=== PATIENT | female | born 1975 | race Two or more races ===

== ENCOUNTER 2018-07-08 03:22 | Inpatient (IN) | payer BC, MEDICAID ==
[~2018-07-08] VITALS: Ht 157.5 cm; Wt 53.5 kg
--- NOTE | 2018-07-08 07:15 | NUR ---
PT ADMITTED TO ROOM 311-2, DIRECT ADM. FROM [facility]. PT A/O X4 DOMINICAN SPIKING ONLY. ADM. DIAGNOSIS PYELONEPHRITIS. GAIT IS STEADY. NO PAIN OR N/V REPORTED. PT ON ROOM AIR TOLERATING WELL. IV ASSESS TO LAC #20 FLASHING WELL, NO REDNESS NOTED. PT REPORTED THAT SHE TAKES ONLY METFORMIN AT HOME. PT'S SKIN INTACT.BELONGINGS CHECKED , LIST SIGHED AND PLACED IN THE CHART. WILL F/U WITH ADM. ORDERS.
[2018-07-08 08:00] VITALS: BP 92/64
[2018-07-08] MEDS ORDERED: MAG HYDROX/AL HYDROX/SIMETH 30 ML UDC PO PRN (09:00)
[2018-07-08] MEDS ORDERED: ONDANSETRON HCL/PF 4 MG/2 ML VIAL IVP PRN (09:00)
[2018-07-08] MEDS ORDERED: HYDROCODONE/APAP 5/325MG 1 EACH TABLET PO PRN (09:00)
[2018-07-08] MEDS ORDERED: DEXTROSE 50%-WATER 50 ML DISP.SYRIN IV PRN (09:00)
[2018-07-08] MEDS ORDERED: MAGNESIUM HYDROXIDE 30 ML UDC PO PRN (09:00)
[2018-07-08] MEDS ORDERED: Z GUARD REMEDY 2 OZ OINT TP PRN (09:00)
--- NOTE | 2018-07-08 09:00 | NUR ---
URINE SAMPLE OBTAINED AND SENT TO LAB
[2018-07-08] MEDS ORDERED: METF-442 PO (09:12)
[2018-07-08] MEDS: PANTOPRAZOLE 40 MG VIAL IV SCH (09:19)
[2018-07-08] MEDS: IV NS 0.9% 1,000 ML IV PRN ×2 (09:28→22:20)
[2018-07-08 11:08] LABS: BASOPHILS % (AUTO) 0.3 % (0.0-2.0); HEMATOCRIT 33 % (33-45); HEMOGLOBIN 11.1 g/dL (11.5-14.8); LYMPHOCYTES # (AUTO) 1.6 /CMM (0.8-4.8); LYMPHOCYTES % (AUTO) 17.3 % (20.0-44.0); MEAN CORPUSCULAR HGB CONC 33 g/dl (31.0-36.0); MEAN CORPUSCULAR VOLUME 92 fL (82-100); MONOCYTES # (AUTO) 0.6 /CMM (0.1-1.30); MONOCYTES % (AUTO) 6.3 % (2.0-12.0); NEUTROPHILS # (AUTO) 6.9 /CMM (1.8-8.9); NEUTROPHILS % (AUTO) 75.1 % (43.0-81.0); PLATELET COUNT (AUTO) 226 /CMM (150-450); RED BLOOD CELL COUNT(AUTO) 3.64 MIL/uL (4.0-5.2); WHITE BLOOD COUNT (AUTO) 9.2 K/uL (4.3-11.0)
[2018-07-08 11:14] LABS: CALCIUM, SERUM 7.8 mg/dL (8.5-10.1); CREATININE 0.6 mg/dL (0.6-1.3); POTASSIUM 3.7 mmol/L (3.5-5.1)
[2018-07-08 11:28] LABS: ALBUMIN 2.8 g/dL (3.4-5.0); BILIRUBIN,TOTAL 0.3 mg/dL (0.2-1.0); MAGNESIUM 1.5 mg/dL (1.8-2.4); PHOSPHORUS 2.9 mg/dL (2.5-4.9)
[2018-07-08] MEDS: BLOOD SUGAR DIAGNOSTIC 1 EACH STRIP IN SCH ×3 (12:00→22:00)
[2018-07-08 12:13] LABS: APPEARANCE,URINE CLEAR (CLEAR); BILIRUBIN,URINE NEGATIVE (NEGATIVE); BLOOD, URINE 2+ Ery/uL (NEGATIVE); COLOR,URINE YELLOW (YELLOW); KETONES,URINE 1+ (NEGATIVE); LEUKOCYTE ESTERASE ,URINE 1+ (NEGATIVE); NITRITE, URINE NEGATIVE (NEGATIVE); PROTEIN,URINE TRACE mg/dl (NEGATIVE); UGLUCOSE 2+ mg/dL (NEGATIVE); UROBILINOGEN,URINE 0.2 EU/dL (0.2)
[2018-07-08 12:20] LABS: BACTERIA,URINE Few /HPF (None Seen); MUCUS,URINE Few /LPF (None Seen); SQUAMOUS EPITHELIAL CELL,UR Few /HPF (None Seen)
--- NOTE | 2018-07-08 15:00 | NUR ---
MRSA SWAB OBTANED ANS SENT TO LAB
[2018-07-08 16:00] VITALS: BP 102/60
[2018-07-08] MEDS: INSULIN REGULAR, HUMAN 100 UNIT/ML 3 ML VIAL SQ PRN ×2 (17:25→22:01)
--- NOTE | 2018-07-08 18:54 | NUR ---
PT RESTING IN BED. NO CHANGES DURING THE SHIFT. PT KEPT COMFORTABLE , ALL NEEDS ATTENDED. SAFETY PRECAUTIONS IN PLACE, CALL LIGHT WITHIN THE REACH.
--- NOTE | 2018-07-08 19:20 | NUR ---
MS RN OPENING NOTES Received patient A/O X 4, on semi-Salter's position on bed with patent peripheral IV line LAC G#18 with NS @ 75ml/hr as ordered. On RA, no SOB/respiratory distress noted. Afebrile at this time. Patient denies any discomfort at this time. Kept bed low and locked. Call light at bedside. Will continue to monitor accordingly.
[2018-07-08 20:00] VITALS: BP 98/56
[2018-07-08] MEDS: CEFTRIAXONE 1 G in IV D5W 50 ML IV SCH (20:09)
[2018-07-08 20:54] VITALS: BP 98/56
--- NOTE | 2018-07-09 03:38 | NUR ---
LENGTH CONTROL TESTER NOTES Patient compliant unable to go back to sleep and with SOB. RR - 20, O2 Sat 97%. Put on O2 @ 2LPM. Kept on Salter's position on bed. Will continue to monitor. Addendum: 07/09/18 at 0342 by MAGNO FRAZIER RN WRONG PATIENT
--- NOTE | 2018-07-09 06:45 | NUR ---
MS RN CLOSING NOTES Patient asleep, A/O X 4, on semi-Salter's position on bed with patent peripheral IV line LAC G#18 with NS @ 75ml/hr as ordered. On RA, no SOB/respiratory distress noted. Afebrile the whole shift. No new unusualities noted. Received faxed blood culture result from [facility], documented on chart. Kept bed low and locked. Call light at bedside. Endorsed to the next shift.
[2018-07-09] MEDS: BLOOD SUGAR DIAGNOSTIC 1 EACH STRIP IN SCH ×4 (06:47→21:29)
[2018-07-09 06:58] LABS: BASOPHILS % (AUTO) 0.3 % (0.0-2.0); HEMATOCRIT 29 % (33-45); HEMOGLOBIN 9.8 g/dL (11.5-14.8); LYMPHOCYTES # (AUTO) 1.4 /CMM (0.8-4.8); LYMPHOCYTES % (AUTO) 16.7 % (20.0-44.0); MEAN CORPUSCULAR HGB CONC 34 g/dl (31.0-36.0); MEAN CORPUSCULAR VOLUME 91 fL (82-100); MONOCYTES # (AUTO) 0.9 /CMM (0.1-1.30); MONOCYTES % (AUTO) 10.3 % (2.0-12.0); NEUTROPHILS # (AUTO) 5.9 /CMM (1.8-8.9); NEUTROPHILS % (AUTO) 71.7 % (43.0-81.0); PLATELET COUNT (AUTO) 192 /CMM (150-450); RED BLOOD CELL COUNT(AUTO) 3.24 MIL/uL (4.0-5.2); WHITE BLOOD COUNT (AUTO) 8.3 K/uL (4.3-11.0)
[2018-07-09 07:09] LABS: CREATININE 0.5 mg/dL (0.6-1.3); MAGNESIUM 1.7 mg/dL (1.8-2.4); PHOSPHORUS 3.4 mg/dL (2.5-4.9); POTASSIUM 3.7 mmol/L (3.5-5.1)
--- NOTE | 2018-07-09 07:20 | NUR ---
ms rn opening notes pt a/ox4, in bed with peripheral IV line LAC G#18 with NS @ 75ml/hr running. On room air, no SOB/respiratory distress note. Bed in low and locked position. Call light within reach.will continue to monitor
[2018-07-09 08:00] VITALS: BP_SYST 110; BP_SYST 73; BP_DIAS 41; BP_DIAS 74
[2018-07-09] MEDS: ACETAMINOPHEN 325 MG TABLET PO PRN (08:51)
[2018-07-09] MEDS: PANTOPRAZOLE 40 MG VIAL IV SCH (08:52)
[2018-07-09] MEDS: Magnesium 1GM/D5W 100ML PREMIX 100 ML IV SCH ×2 (11:54→13:29)
--- NOTE | 2018-07-09 12:20 | NUR ---
pt BS is 173. refused insulin at this time. Education provided
[2018-07-09 16:00] VITALS: BP 125/69
[2018-07-09] MEDS: INSULIN REGULAR, HUMAN 100 UNIT/ML 3 ML VIAL SQ PRN ×2 (17:21→21:27)
--- NOTE | 2018-07-09 19:15 | NUR ---
pt a/ox4, in bed with SA a new peripheral IV line L arm G#22 with NS @ 75ml/hr running. On room air, no SOB/respiratory distress note. Bed in low and locked position. Call light within reach. will endorse to next shift for randee.
[2018-07-09] MEDS: IV NS 0.9% 1,000 ML IV PRN (19:36)
[2018-07-09 20:33] VITALS: BP 130/80
[2018-07-09 20:34] VITALS: BP 118/70
[2018-07-09] MEDS: CEFTRIAXONE 1 G in IV D5W 50 ML IV SCH (20:47)
[2018-07-10] MEDS: ACETAMINOPHEN 325 MG TABLET PO PRN (04:15)
--- NOTE | 2018-07-10 04:15 | NUR ---
RN NOTES PT. COMPLAINED OF A HEADACHE, TYLENOL 650MG PO GIVEN ORDERED, V/S STABLE
[2018-07-10 06:52] LABS: BASOPHILS % (AUTO) 0.2 % (0.0-2.0); EOSINOPHILS % (AUTO) 1.5 % (0.0-6.0); HEMATOCRIT 29 % (33-45); HEMOGLOBIN 9.9 g/dL (11.5-14.8); LYMPHOCYTES # (AUTO) 1.1 /CMM (0.8-4.8); LYMPHOCYTES % (AUTO) 16.6 % (20.0-44.0); MEAN CORPUSCULAR HGB CONC 34 g/dl (31.0-36.0); MEAN CORPUSCULAR VOLUME 90 fL (82-100); MONOCYTES # (AUTO) 0.6 /CMM (0.1-1.30); MONOCYTES % (AUTO) 9.4 % (2.0-12.0); NEUTROPHILS % (AUTO) 72.3 % (43.0-81.0); PLATELET COUNT (AUTO) 213 /CMM (150-450); RED BLOOD CELL COUNT(AUTO) 3.23 MIL/uL (4.0-5.2); WHITE BLOOD COUNT (AUTO) 6.9 K/uL (4.3-11.0)
[2018-07-10 07:11] LABS: CALCIUM, SERUM 8.2 mg/dL (8.5-10.1); CREATININE 0.6 mg/dL (0.6-1.3); MAGNESIUM 1.9 mg/dL (1.8-2.4); POTASSIUM 3.5 mmol/L (3.5-5.1)
[2018-07-10] MEDS: BLOOD SUGAR DIAGNOSTIC 1 EACH STRIP IN SCH ×2 (07:30→11:46)
--- NOTE | 2018-07-10 07:43 | NUR ---
MS/RN OPENING NOTE PATIENT IN BED IN STABLE CONDITION. A/O X 4, YORUBA SPEAKING. NO SIGNS OF ACUTE DISTRESS. NO COMPLAIN OF PAIN OR DISCOMFORT. ALL NEEDS ATTENDED TO. CALL LIGHT WITHIN REACH. WILL CONTINUE TO MONITOR TO ENSURE SAFETY.
[2018-07-10 08:00] VITALS: BP 118/68
[2018-07-10] MEDS: PANTOPRAZOLE 40 MG VIAL IV SCH (08:06)
[2018-07-10] MEDS: IV NS 0.9% 1,000 ML IV PRN (10:48)
[2018-07-10] MEDS: INSULIN REGULAR, HUMAN 100 UNIT/ML 3 ML VIAL SQ PRN (12:31)
--- NOTE | 2018-07-10 14:11 | NUR ---
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 A/O X 4, BENINESE SPEAKING. NO SIGNS OF ACUTE DISTRESS. NO COMPLAIN OF PAIN OR DISCOMFORT. DISCHARGE EDUCATION AND TEACHINGS PROVIDED TRANSLATED IN BENINESE VERBALIZED UNDERSTANDING. PRESCRIPTION GIVEN TO PATIENT AND ALSO MADE AWARE TO FOLLOW UP WITH PRIMARY PHYSICIAN WITHIN A WEEK. ALL NEEDS ATTENDED TO. NAME BAND AND IV LINE REMOVED. LEFT IN STABLE CONDITION ACCOMPANIED BY DAUGHTERS VIA CAR.
== END 2018-07-10 14:10 | disposition home or self-care (01) | DRG 720 ==
LOC: TELE 06:59 → MED 11:39
PROVIDERS: ADMIT Nurse Practitioner Acute Care; ATTEND Nurse Practitioner Acute Care
DX: A41.9 Sepsis, unspecified organism (principal); E44.0 Moderate protein-calorie malnutrition; E11.65 Type 2 diabetes mellitus with hyperglycemia; E83.42 Hypomagnesemia; E87.1 Hypo-osmolality and hyponatremia; N12 Tubulo-interstitial nephritis, not specified as acute or chronic; E87.6 Hypokalemia; Z87.440 Personal history of urinary (tract) infections; Z83.3 Family history of diabetes mellitus; E78.5 Hyperlipidemia, unspecified; D64.9 Anemia, unspecified; N39.0 Urinary tract infection, site not specified
CPT/HCPCS: 36415; 80048-TC; 80053-TC; 80061-TC; 81000-TC; 82962-TC; 83605-TC; 83690-TC; 83735-TC; 84100-TC; 84703-TC; 85025-TC; 87081-TC; 87086-TC; C9113; G0378; J0696; J1815; J3475; J7030; J7060